=== PATIENT | female | born 1960 | race African-American/Black ===

== ENCOUNTER 2020-02-19 14:08 | Emergency (ER) | payer MEDICAID ==
[~2020-02-19] VITALS: Ht 170.2 cm; Wt 80.0 kg
[2020-02-19] MEDS ORDERED: CLONIDINE 0.2MG TABLET PO ONE (15:45)
[2020-02-19 16:40] VITALS: BP 146/84
== END 2020-02-19 16:41 | disposition home or self-care (01) ==
LOC: EDBD 14:08 → ER 14:08
DX: T40.991A Poisoning by other psychodysleptics [hallucinogens], accidental (unintentional), initial encounter (principal); X58.XXXA Exposure to other specified factors, initial encounter
CPT/HCPCS: 99283

== ENCOUNTER 2020-02-25 21:04 | Emergency (ER) | payer MEDICAID, OTHER ==
[~2020-02-25] VITALS: Ht 167.6 cm; Wt 73.0 kg
[2020-02-25 21:24] VITALS: BP 148/88
== END 2020-02-25 23:45 | disposition left against medical advice (07) ==
LOC: ER 21:04
DX: Z53.21 Procedure and treatment not carried out due to patient leaving prior to being seen by health care provider (principal)